=== PATIENT | female | born 1970 | race Two or more races ===

== ENCOUNTER 2023-10-13 12:47 | Emergency (ER) | payer OTHER ==
[~2023-10-13] VITALS: Ht 160 cm; Wt 58.3 kg
[2023-10-13 13:00] LABS: COVID AG,FIA SOURCE NPH
[2023-10-13 13:20] LABS: BASOPHILS % (AUTO) 0.1 % (0.0-2.0); EOSINOPHILS % (AUTO) 0.2 % (1.0-6.0); HEMATOCRIT 33.9 % (36-46); HEMOGLOBIN 11.2 g/dL (12.0-16.0); LYMPHOCYTES # (AUTO) 0.6 K/uL (1.0-4.8); MEAN CORPUSCULAR HEMOGLOBIN 32.8 pg (26.0-34.0); MEAN CORPUSCULAR VOLUME 99 fL (80-100); MONOCYTES # (AUTO) 0.4 K/uL (0.1-1.0); MONOCYTES % (AUTO) 9.5 % (2.0-9.0); NEUTROPHILS # (AUTO) 3.3 K/uL (1.8-7.7); NEUTROPHILS % (AUTO) 76.2 % (40.0-70.0); PLATELET COUNT (AUTO) 54 K/uL (150-450); RED BLOOD CELL COUNT(AUTO) 3.42 MIL/uL (4.00-5.20); RED CELL DISTRIBUTION WIDTH 15.7 % (11.5-14.5); WHITE BLOOD COUNT (AUTO) 4.3 K/uL (4.5-11.0)
[2023-10-13 13:24] VITALS: TEMP 98
[2023-10-13 13:32] LABS: SARS-COV2 (COVID) ANTIGEN,FIA Negative (Negative)
[2023-10-13 13:32] LABS: CALCIUM, TOTAL 8.6 mg/dL (8.8-10.5); CREATININE 2.05 mg/dL (0.60-1.30); POTASSIUM 3.9 mmol/L (3.5-5.1)
[2023-10-13 13:37] LABS: ALBUMIN 3.1 g/dL (3.4-5.0); BILIRUBIN,TOTAL 1.2 mg/dL (0.1-1.0); TOTAL PROTEIN, SERUM 6.9 g/dL (6.4-8.2)
[2023-10-13 13:39] LABS: TROPONIN I-HIGH SENSITIVITY 19 ng/L (<51)
[2023-10-13 13:50] LABS: INR 1.1 (0.9-1.1); PROTHROMBIN TIME 11.9 SEC (9.4-11.6)
[2023-10-13] MEDS: CLOPIDOGREL BISULFATE 75 MG TABLET PO ONE (15:26)
[2023-10-13] MEDS: ASPIRIN 325 MG TABLET PO ONE (15:26)
[2023-10-13 17:21] VITALS: BP 154/85; PULSE 91; RESP 20
== END 2023-10-13 19:06 ==
LOC: EMS 12:48
DX: I63.9 Cerebral infarction, unspecified (principal); H33.21 Serous retinal detachment, right eye; N18.6 End stage renal disease; D69.6 Thrombocytopenia, unspecified; A15.9 Respiratory tuberculosis unspecified; Z99.2 Dependence on renal dialysis; Z20.822 Contact with and (suspected) exposure to COVID-19
CPT/HCPCS: 70496; 71045; 80053; 84484; 85025; 85610; 85730; 93005; 99291; 99292; 36415-L1; 36415-TC; 70450; 70450-TC